=== PATIENT | male | born 1965 | race Caucasian/White ===

== ENCOUNTER 2018-06-27 08:26 | Emergency (ER) | payer OTHER ==
[2018-06-27] MEDS: IBUPROFEN 800 MG TAB PO (10:09)
== END 2018-06-27 10:45 | disposition home or self-care (01) ==
LOC: FTE 08:26
DX: S99.922A Unspecified injury of left foot, initial encounter (principal); E11.9 Type 2 diabetes mellitus without complications; X58.XXXA Exposure to other specified factors, initial encounter; Y92.89 Other specified places as the place of occurrence of the external cause
CPT/HCPCS: 99282